=== PATIENT | male | born 1955 | race Caucasian/White ===

== ENCOUNTER 2020-04-09 11:28 | Emergency (ER) | payer MEDICARE ==
[~2020-04-09] VITALS: Ht 172.7 cm; Wt 56.0 kg
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
[2020-04-09] MEDS ORDERED: TRAZ-120 PO (12:05)
[2020-04-09] MEDS ORDERED: RISP2TAB78 PO (12:06)
[2020-04-09 12:07] LABS: BASO # 0.1 x10^3/uL (0.0-0.2); BASO % 1 % (0-3); EOS # 0.2 x10^3/uL (0.0-0.7); EOS % 2 % (0-3); HEMATOCRIT 26.5 % (39.0-53.0); HEMOGLOBIN 8.4 g/dL (13.0-17.5); LYMPH # 0.8 x10^3/uL (1.0-4.8); LYMPH % 6 % (24-48); MEAN CORPUSCULAR HEMOGLOBIN 29 pg (25-35); MEAN CORPUSCULAR HGB CONC 32 g/dL (31-37); MEAN CORPUSCULAR VOLUME 91 fL (79-100); MONO % 8 % (0-9); NEUT # 10.6 x10^3uL (1.8-7.7); NEUT % 84 % (31-73); PLATELET COUNT 533 x10^3/uL (140-400); RED BLOOD COUNT 2.91 x10^6/uL (4.30-5.70); RED CELL DISTRIBUTION WIDTH 14.9 % (11.5-14.5); WHITE BLOOD COUNT 12.7 x10^3/uL (4.0-11.0)
[2020-04-09] MEDS ORDERED: BENZ1TAB5 PO (12:07)
[2020-04-09] MEDS ORDERED: DIVA500T17 PO (12:07)
[2020-04-09 12:16] LABS: CALCIUM 11.8 mg/dL (8.5-10.1); CREATININE 0.6 mg/dL (0.7-1.3); GFR 136.5; POTASSIUM 3.1 mmol/L (3.5-5.1)
[2020-04-09 12:22] LABS: ALBUMIN 2.1 g/dL (3.4-5.0); ALBUMIN/GLOBULIN RATIO 0.5 (1.0-1.7); MAGNESIUM 1.9 mg/dL (1.8-2.4); TOTAL BILIRUBIN 0.1 mg/dL (0.2-1.0); TOTAL PROTEIN 6.4 g/dL (6.4-8.2)
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
[2020-04-09] MEDS ORDERED: IOHEXOL 300 MG/ML 75 ML VIAL. IV ONE (13:00)
[2020-04-09] MEDS ORDERED: IV NORMAL SALINE 1,000ML 1,000 ML IV ONE (13:30)
--- NOTE | 2020-04-09 14:00 | RAD ---
STUDY: CT head without contrast INDICATION: Altered mental status. COMPARISON: None. TECHNIQUE: Axial CT imaging through the head without the use of intravenous contrast. Sagittal and co ritu reformats were obtained. One or more of the following individualized dose reduction techniques were utilized for this examinat ion: 1. Automated exposure control 2. Adjustment of the mA and/or kV according to patient size 3. Use of iterative reconstruction technique. FINDINGS: Mild motion degradation despite a repeat imaging attempt. No acute intracranial hemorrhage is identif ied. Clarke-white matter differentiation is maintained. No mass effect, midline shift or hydrocephalus. Within normal limits brain parenchymal volume and attenuation pattern for patient age. Minimal caroti d siphon calcific atherosclerosis. Intact calvarium. Normally aerated mastoid air cells, middle ears and paranasal sinuses. IMPRESSION: No acute intracranial abnormality by CT. Electronically signed by: INGRID JONAS MD (04/09/2020 1:57 PM) [facility]
--- NOTE | 2020-04-09 14:30 | RAD ---
Study: CT chest, abdomen and pelvis with contrast INDICATION: Lung mass and sacral fracture. COMPARISON: Same day radiographs. TECHNIQUE: Helical CT imaging performed of the chest, abdomen and pelvis after the intravenous admini stration of 75 cc contrast. Coronal and sagittal reformats were obtained. One or more of the following individualized dose reduction techniques were utilized for this examinat ion: 1. Automated exposure control 2. Adjustment of the mA and/or kV according to patient size 3. Use of iterative reconstruction technique. FINDINGS: CT Chest: Large, necrotic mass with associated cavitation involving a significant portion of the posterior righ t lung measuring approximately 15.4 cm craniocaudal by 10.2 cm transverse by 8.9 cm AP. The medial ma rgin of the mass involves a portion of the ernesto. Occlusion of the airway supplying the upper aspect o f the right lower lobe. A few pulmonary arteries and veins are engulfed by the mass. Groundglass opac ities at the subpleural aspect of the right lung mainly along the upper and lower aspect of the mass. Background emphysema as well as a few small pulmonary nodules such as right lower lobe on images 70 and 71 series 4 measuring 4.5 mm. Lingular nodule on image 72 measuring 0.7 cm. Pleural-based opacity at the posterior left lower lobe could represent rounded atelectasis. A few mildly enlarged right hilar lymph nodes. Subcarinal lymph node measures 1.7 cm short axis. Prec arinal lymph node measures 0.9 cm short axis. Mild wall thickening of the distal esophagus without a discrete mass. Small amount of pericardial fluid. Scattered calcified and noncalcified atheromatous plaque to include coronary artery involvement. No a ortic aneurysm or dissection. The visualized great vessels are patent. No axillary adenopathy. The visualized thyroid is unremarkable. Somewhat cachectic body habitus. No destructive osseous lesion. A few millimetric foci of osseous sclerosis and lucency such as in the lateral right fifth rib and T1 vertebral body. Chronic vertebral body height loss at T6. CT Abdomen/Pelvis: No discrete liver lesion. Within normal limits gallbladder. Foci of mineralization along the pancreas could be parenchymal in location or associated with the splenic artery. No findings to suggest acute pancreatitis. No ductal dilatation. Relatively homogeneous parenchymal attenuation. The spleen is wi thin normal limits for size. No adrenal gland mass. Left renal cyst measuring up to 6.6 cm. No hydronephrosis. Mild/moderate distention of the urinary bl adder. Either a layering urinary bladder stone or localized wall mineralization measuring up to 1.1 c m transverse. Mild prostate enlargement of 4.5 cm transverse. Mild/moderate degree of constipation to include rectal distention with stool. Overall the gastrointes tinal tract is poorly evaluated without contrast. No appreciable colonic wall thickening. Incomplete visualization of the appendix. No pathologic dilatation of small bowel with transitioning to suggest obstruction. Partially decompressed stomach. Aortic and iliofemoral calcific atherosclerosis. No aneurysmal dilatation. Patent major veins. No sakina reciable lymphadenopathy below the diaphragm. No free fluid or pneumoperitoneum. Presumed acute, nondisplaced fracture of S4, image 52 series 9 intact lumbar spine and hips. No focal ly aggressive osseous lesion. IMPRESSION: CT Chest: 1. Large necrotic mass in the right lung with areas of cavitation. The mass is centered in the right lower lobe but crosses the major fissure to involve the right upper lobe and collectively measures 1 5.4 x 10.2 x 8.9 cm. The mass extends to the hilum with bronchovascular obstruction to the upper aspe ct of the right lower lobe. The appearance is highly suggestive of a primary lung malignancy especial ly given background emphysema. Groundglass opacities along the periphery of the mass could represent postobstructive pneumonia/pneumonitis. A few prominent mediastinal/hilar lymph nodes suspicious for m etastatic disease. Eventual PET/CT would allow for more complete staging. 2. Pleural based opacity at the posterior left lower lobe could represent round atelectasis. Several small pulmonary nodules such as in the right lower lobe. Attention on follow-up. 3. Additional chronic observations as above. CT Abdomen/Pelvis: 1. No findings concerning for metastatic disease below the diaphragm. 2. Presumed acute, nondisplaced fracture of the ventral cortex of S4. No additional acute osseous ab normality. 3. Mild/moderate constipation. 4. Additional chronic findings as above. Electronically signed by: INGRID JONAS MD (04/09/2020 2:28 PM) [facility]
[2020-04-09 14:43] LABS: BARBITURATES NEG (NEG); BENZODIAZEPINES NEG (NEG); CANNABINOIDS NEG (NEG); COCAINE NEG (NEG); METHADONE NEG (NEG); OPIATES NEG (NEG); PHENCYCLIDINE NEG (NEG)
[2020-04-09] MEDS ORDERED: risperiDONE 2 MG TABLET. PO ONE (14:45)
[2020-04-09 14:49] LABS: AMPHETAMINE/METHAMPHETAMINE NEG (NEG)
[2020-04-09 14:54] LABS: BILIRUBIN,URINE NEG (NEG); CLARITY,URINE CLEAR; COLOR,URINE STRAW; GLUCOSE,URINE NEG (NEG)
[2020-04-09 14:55] LABS: AMORPHOUS SEDIMENT,UR PRESENT /HPF; BACTERIA,URINE 0 /HPF (0-FEW); NITRITE,URINE NEG (NEG); RBC,URINE 0 /HPF (0-2); UROBILINOGEN,URINE 0.2 mg/dL (0.2 mg/dL); WBC,URINE 0 /HPF (0-4)
[2020-04-09 20:38] VITALS: BP 113/90
== END 2020-04-09 20:58 | disposition short-term general hospital (02) ==
LOC: ER 11:28
DX: J18.9 Pneumonia, unspecified organism (principal); F20.9 Schizophrenia, unspecified; R91.8 Other nonspecific abnormal finding of lung field; R51.9 Headache, unspecified; Z79.899 Other long term (current) drug therapy
CPT/HCPCS: 36415; 70450; 71046; 71260; 72220; 74177; 80053; 80307; 81001; 83735; 85025; 96361; 96365; 99285; G0480; J1956; J7030